=== PATIENT | male | born 2000 | race Two or more races ===

== ENCOUNTER 2024-04-12 01:01 | Emergency (ER) | payer SELFPAY ==
[~2024-04-12] VITALS: Ht 188 cm; Wt 119.5 kg
[2024-04-12 01:14] VITALS: BP 126/85; PULSE 136; RESP 16; O2SAT 96
[2024-04-12 01:55] LABS: COVID19 ANTIGEN SOFIA FIA NEGATIVE (NEGATIVE)
[2024-04-12 01:56] LABS: Rapid Influenza B Negative (Negative)
[2024-04-12 01:57] LABS: Rapid Influenza A Positive (Negative)
== END 2024-04-12 02:08 | disposition left against medical advice (07) ==
LOC: ER 01:01
DX: J02.9 Acute pharyngitis, unspecified (principal); M79.10 Myalgia, unspecified site; R50.9 Fever, unspecified; Z20.822 Contact with and (suspected) exposure to COVID-19; Z53.21 Procedure and treatment not carried out due to patient leaving prior to being seen by health care provider
CPT/HCPCS: 36415; 87426; 87804